=== PATIENT | male | born 1995 | race African-American/Black ===

== ENCOUNTER 2020-07-13 02:42 | Emergency (ER) | payer OTHER ==
[2020-07-13] MEDS ORDERED: Morphine 4 MG/ML VIAL ONE ×3 (03:23→07:38)
[2020-07-13] MEDS ORDERED: Sodium Chloride 0.9% 1,000 ML ONE (03:23)
[2020-07-13] MEDS ORDERED: Promethazine HCl 25 MG/ML VIAL ONE (03:23)
[2020-07-13] MEDS ORDERED: Sodium Chloride 0.9% 100 ML ONE (03:24)
[2020-07-13 03:44] LABS: Hemoglobin 9.8 g/dL (14.0-18.0); Mean Corpuscular Hemoglobin 37.9 pg (27.0-31.0); Nucleated RBC 16 % (0); Red Blood Cell (RBC) Count 2.58 mill/uL (4.70-6.10); White Blood Cell (WBC) Count 16.9 thou/uL (4.8-10.8)
[2020-07-13 03:45] LABS: ALT (SGPT) 55 U/L (8-55); AST (SGOT) 50 U/L (5-34); Albumin 3.9 g/dL (3.5-5.0); Alkaline Phosphatase 144 U/L (40-110); Anion Gap 14 mmol/L (10-20); BUN (Urea Nitrogen) 8 mg/dL (8.9-20.6); Bilirubin, Total 2.5 mg/dL (0.2-1.2); Calc. Creatinine Clearance 0 mL/min (70-130); Calcium 7.8 mg/dL (7.8-10.44); Carbon Dioxide 21 mmol/L (22-29); Eosinophils 12 % (0-10); Estimated GFR-MDRD Greater than 90; Globulin 3.4 g/dL (2.4-3.5); Glucose 91 mg/dL (70-105); Lymphocytes 40 % (21-51); MDiff Complete? YES; Manual Diff?? YES; Mean Corpuscular HGB CONC 34.8 g/dL (32.0-36.0); Monocytes 12 % (0-10); Neutrophil 36 % (42-75); Platelet Count 379 thou/uL (130-400); Potassium 4.7 mmol/L (3.5-5.1); Protein, Total 7.3 g/dL (6.0-8.3); RBC Distribution Width 22.3 % (11.5-14.5)
[2020-07-13 03:47] LABS: Anisocytosis MARKED = >30 cells (100X) (0-5/hpf); Poikilocytosis MARKED = >30 cells (100X) (0-5/hpf); Sickle Cells MARKED = >16 cells (100X) (None Seen); Target Cells MODERATE= 6-15 cells (100X) (0-1/hpf)
[2020-07-13 03:48] LABS: Chloride 106 mmol/L (98-107)
[2020-07-13 03:49] LABS: Sodium 136 mmol/L (136-145)
[2020-07-13 04:52] LABS: Reticulocyte Count 17.9 % (0.5-1.5)
[2020-07-13 04:58] LABS: Troponin I Less than 0.010 ng/mL (< 0.028)
--- NOTE | 2020-07-13 07:22 | RAD ---
EXAM: Chest PA and lateral: HISTORY: Chest pain COMPARISON: 04/25/2020 FINDINGS: Heart: Upper normal cardiac silhouette. Aorta: Unremarkable Pulmonary vessels: Normal Costophrenic angles: Costophrenic angles are clear. Lungs: No consolidation or masses. Pneumothorax: No pneumothorax Osseous structures: No osseous abnormalities IMPRESSION: Upper normal cardiac silhouette, without evidence of congestive heart failure.
== END 2020-07-13 09:15 | disposition short-term general hospital (02) ==
LOC: NAV ERS 02:42
DX: D57.01 Hb-SS disease with acute chest syndrome (principal)
CPT/HCPCS: 71046; 80053; 84484; 85025; 85046; 93005; 94760; 96365; 96375; 96376; J2270; J2550; J7050

== ENCOUNTER 2020-10-27 01:57 | Emergency (ER) | payer OTHER ==
[2020-10-27 02:28] LABS: Mean Corpuscular HGB CONC 36.1 g/dL (32.0-36.0); Platelet Count 346 thou/uL (130-400); RBC Distribution Width 18.2 % (11.5-14.5); White Blood Cell (WBC) Count 19.7 thou/uL (4.8-10.8)
[2020-10-27 02:29] LABS: Anisocytosis MODERATE=16-30 cells (100X) (0-5/hpf); Eosinophils 8 % (0-10); Lymphocytes 31 % (21-51); MDiff Complete? YES; Manual Diff?? YES; Mean Platelet Volume 6.7 fL (7.4-10.4); Monocytes 2 % (0-10); Neutrophil 59 % (42-75); Sickle Cells MARKED = >16 cells (100X) (None Seen); Target Cells MARKED = >16 cells (100X) (0-1/hpf)
[2020-10-27] MEDS ORDERED: Morphine 4 MG/ML VIAL ONE ×5 (02:32→10:17)
[2020-10-27] MEDS ORDERED: Dextrose 5 %-0.45 % NaCl 1,000 ML ONE ×2 (02:32→10:33)
[2020-10-27] MEDS ORDERED: Ondansetron PF 4 MG/2 ML Vial ONE ×2 (02:32→10:17)
[2020-10-27 02:38] LABS: ALT (SGPT) 26 U/L (8-55); AST (SGOT) 27 U/L (5-34); Albumin 3.9 g/dL (3.5-5.0); Alkaline Phosphatase 162 U/L (40-110); Anion Gap 12 mmol/L (10-20); BUN (Urea Nitrogen) 6 mg/dL (8.9-20.6); Bilirubin, Total 4.4 mg/dL (0.2-1.2); Calc. Creatinine Clearance 0 mL/min (70-130); Calcium 7.8 mg/dL (7.8-10.44); Chloride 109 mmol/L (98-107); Globulin 2.8 g/dL (2.4-3.5); Glucose 107 mg/dL (70-105); Potassium 4.2 mmol/L (3.5-5.1); Protein, Total 6.7 g/dL (6.0-8.3); Sodium 140 mmol/L (136-145)
[2020-10-27 02:41] LABS: Carbon Dioxide 23 mmol/L (22-29)
[2020-10-27 04:04] LABS: Reticulocyte Count 16.8 % (0.5-1.5)
--- NOTE | 2020-10-27 08:06 | RAD ---
RADIOGRAPH CHEST 1 VIEW: DATE: 10/27/2020 HISTORY: 25-year-old male with sickle cell crisis FINDINGS: There is cardiomegaly. There is no evidence of airspace density, pulmonary edema, or pneumothorax. Th e lateral costophrenic angles are not effaced. IMPRESSION: 1) No acute pulmonary findings. 2) cardiomegaly without congestive heart failure.
--- NOTE | 2020-10-27 08:42 | CT ---
PRELIMINARY REPORT/[facility]/EMERGENCY AFTER HOURS PROCEDURE: EXAM: CTA Chest with Intravenous Contrast CLINICAL HISTORY: CHEST PAIN; ELEVATED D-DIMER TECHNIQUE: Axial CTA images of the chest with intravenous contrast. Three-dimensional MIP/volume rend ered reformations were performed. CONTRAST: With; ISOVUE [id number] COMPARISON: None FINDINGS: Normal caliber main pulmonary artery. Suboptimally opacified pulmonary arterial tree. No c entral or large segmental pulmonary embolism. No pericardial effusion. Thoracic aorta is normal in co urse and caliber. No periaortic fluid or stranding. No pneumothorax, effusion or focal airspace dise ase. The central airways are patent. No bronchiectasis. Imaged portion of the upper abdomen is unremarkable. The superficial soft tissues are unremarkable. N o acute bony abnormality or worrisome osseous lesions identified. IMPRESSION: No central or large segmental pulmonary embolism or other acute finding ELECTRONICALLY SIGNED BY: Riaz De Leon MD Oct 27, 2020 4:07:57 AM [facility] FINAL REPORT EMERGENT AFTER HOURS CTA OF THE CHEST: FINDINGS/IMPRESSION: I agree with the findings and impression given in the preliminary report per [facility]. 1. No evidence of central pulmonary thromboembolism on this limited exam. 2. Status post splenomegaly and cholecystectomy. POS: OFF
[2020-10-27] MEDS ORDERED: Sodium Chloride 0.9% 1,000 ML ONE (10:26)
== END 2020-10-27 12:24 | disposition short-term general hospital (02) ==
LOC: NAV ERS 01:57
DX: D57.01 Hb-SS disease with acute chest syndrome (principal)
CPT/HCPCS: 71045; 71275; 80053; 84484; 85025; 85046; 85379; 93005; 96374; 96375; 96376; J2270; J2405; J7042; J7050